=== PATIENT | male | born 1965 | race African-American/Black ===

== ENCOUNTER 2017-01-19 11:34 | Inpatient (IN) | payer MEDICAID, OTHER ==
[~2017-01-19] VITALS: Ht 193 cm; Wt 135.2 kg
[~2017-01-19 11:34] MED LIST: ASPI-1159 PO; ATOR40TA70 PO; BUME1TAB4 PO; BUME2TAB3 PO; CARV25TA47 PO; DIGO-26 PO; FOLI-43 PO; HYDR-4134 PO; HYDR25TA PO; INSU3INS6 SUBCUT; IPRA42SP2 INH; LEVO75TA7 PO; MAGN400C PO; METO5TAB69 PO; OMEP20TA2 PO; ONDA4TAB51 PO; POTA20TA12 PO; QUET200T PO; SPIR25TA4 PO; ZOLP10TA2 PO; amiodarone hcl PO
[2017-01-19] MEDS ORDERED: MORPHINE SULFATE 4 MG/ML CPJ (NOT FOR IM USE) IV ONE (12:15)
[2017-01-19] MEDS ORDERED: ASPIRIN 325MG TABLET PO ONE (12:15)
[2017-01-19] MEDS ORDERED: ONDANSETRON HCL 4MG/2ML VIAL IV ONE (12:15)
[2017-01-19 12:44] LABS: HEMATOCRIT. 39.6 % (42.0-52.0); HEMOGLOBIN. 13.6 g/dL (14.0-18.0); LYMPHOCYTES % 14.3 % (20.0-50.0); MEAN CORPUSCULAR HEMOGLOBIN 27.5 pg (28.0-32.0); MEAN CORPUSCULAR VOLUME 80.4 fL (80.0-94.0); MEAN PLATELET VOLUME 10.9 fl (7.4-10.4); MONOCYTES % 6.2 % (2.0-8.0); NEUTROPHILS % 77.5 % (40.0-76.0); PLATELET 141 x1000/uL (130-400); RED BLOOD CELL COUNT 4.93 mill/uL (4.7-6.1); RED CELL DISTRIBUTION WIDTH 14.4 % (11.6-14.6)
[2017-01-19 12:50] LABS: PROTHROMBIN TIME 10.3 sec (9.4-11.6)
[2017-01-19 12:56] LABS: CHLORIDE 97 mEq/L (98-107)
[2017-01-19 13:01] LABS: CARBON DIOXIDE 27 mEq/L (21-32)
[2017-01-19 13:04] LABS: TROPONIN I 0.05 ng/mL (0.00-0.04)
[2017-01-19 16:15] VITALS: BP 134/74
[2017-01-19 16:27] VITALS: BP 119/54
[2017-01-19] MEDS ORDERED: IPRATROPIUM/ALBUTEROL 0.5-3(2.5)MG/3ML NEB HHN PRN (17:45)
[2017-01-19] MEDS ORDERED: ONDANSETRON 4MG ODT PO PRN (17:45)
[2017-01-19] MEDS ORDERED: DEXTROSE 50% WATER 50ML SYRINGE IV PRN (18:30)
[2017-01-19] MEDS: MORPHINE SULFATE 4 MG/ML CPJ (NOT FOR IM USE) IV PRN ×2 (19:04→23:33)
[2017-01-19 20:10] VITALS: BP 107/68
[2017-01-19] MEDS: IPRATROPIUM/ALBUTEROL 0.5-3(2.5)MG/3ML NEB HHN SCH (20:42)
[2017-01-19] MEDS ORDERED: HYDRALAZINE HCL 25MG TABLET PO SCH (21:00)
[2017-01-19] MEDS: BLOOD SUGAR DIAGNOSTIC STRIP TEST SCH (21:19)
[2017-01-19] MEDS: QUETIAPINE FUMARATE 100MG TABLET PO SCH (21:19)
[2017-01-19] MEDS: INSULIN LISPRO 100 UNITS/ML SUBCUT SCH (22:37)
[2017-01-19] MEDS: ZOLPIDEM TARTRATE 5MG TABLET PO PRN (23:33)
[2017-01-19] MEDS: INSULIN DETEMIR UD 100 UNITS/ML SYR SUBCUT SCH (23:38)
[2017-01-20 00:07] VITALS: BP 116/65
[2017-01-20] MEDS: IPRATROPIUM/ALBUTEROL 0.5-3(2.5)MG/3ML NEB HHN SCH ×5 (00:45→21:15)
[2017-01-20 04:31] VITALS: BP 128/73
[2017-01-20] MEDS: LEVOTHYROXINE SODIUM 75MCG TABLET PO SCH (06:22)
[2017-01-20] MEDS: BLOOD SUGAR DIAGNOSTIC STRIP TEST SCH ×4 (06:26→21:10)
[2017-01-20] MEDS: INSULIN LISPRO 100 UNITS/ML SUBCUT SCH ×7 (06:26→21:18)
[2017-01-20 07:26] LABS: CARBON DIOXIDE 29 mEq/L (21-32); CHLORIDE 97 mEq/L (98-107); CREATINE KINASE 199 IU/L (39-308); CREATINE KINASE MB FRACTION 5.3 ng/mL (0.5-3.6); PHOSPHORUS 3.3 mg/dL (2.5-4.9); TROPONIN I 0.05 ng/mL (0.00-0.04)
[2017-01-20 07:52] LABS: BASOPHILS % 0.5 % (0.0-2.0); EOSINOPHILS % 1.8 % (0.0-5.0); HEMATOCRIT. 38.2 % (42.0-52.0); HEMOGLOBIN. 12.9 g/dL (14.0-18.0); LYMPHOCYTES % 23.2 % (20.0-50.0); MEAN CORPUSCULAR HEMOGLOBIN 27.3 pg (28.0-32.0); MEAN PLATELET VOLUME 11.8 fl (7.4-10.4); MONOCYTES % 6.5 % (2.0-8.0); PLATELET 134 x1000/uL (130-400); RED BLOOD CELL COUNT 4.72 mill/uL (4.7-6.1); RED CELL DISTRIBUTION WIDTH 14.5 % (11.6-14.6)
[2017-01-20 07:57] LABS: *AMPHETAMINES SCREEN URINE NEGATIVE (NEGATIVE); *BARBITURATES SCREEN URINE NEGATIVE (NEGATIVE); *BENZODIAZEPINES SCREEN URINE NEGATIVE (NEGATIVE); *COCAINE SCREEN URINE NEGATIVE (NEGATIVE); CANNABINOID URINE SCREEN PRESUMTIVE POSITIVE (NEGATIVE); METHADONE URINE SCREEN NEGATIVE (NEGATIVE); OPIATES URINE SCREEN PRESUMTIVE POSITIVE (NEGATIVE); PHENCYCLIDINE URINE SCREEN NEGATIVE (NEGATIVE)
[2017-01-20 08:00] VITALS: BP 148/50
[2017-01-20] MEDS ORDERED: HYDROCHLOROTHIAZIDE 25MG TABLET PO SCH (09:00)
[2017-01-20] MEDS ORDERED: ASPIRIN 81MG EC TABLET PO SCH (09:00)
[2017-01-20] MEDS: ASPIRIN 325MG EC TABLET PO SCH (09:24)
[2017-01-20] MEDS: CARVEDILOL 25MG TABLET PO SCH ×2 (09:25→16:48)
[2017-01-20] MEDS: SPIRONOLACTONE 25MG TABLET PO SCH (09:25)
[2017-01-20] MEDS: DIGOXIN 125MCG TABLET PO SCH (09:25)
[2017-01-20] MEDS: AMLODIPINE 2.5MG TABLET PO SCH (09:25)
[2017-01-20] MEDS: HYDRALAZINE HCL 25MG TABLET PO SCH ×2 (09:25→21:00)
[2017-01-20] MEDS: FUROSEMIDE 40MG/4ML VIAL IVP SCH (09:26)
[2017-01-20] MEDS: PANTOPRAZOLE SODIUM 40 MG/VIAL IV SCH (09:26)
[2017-01-20] MEDS: FOLIC ACID 1MG TABLET PO SCH (09:26)
[2017-01-20] MEDS: MORPHINE SULFATE 4 MG/ML CPJ (NOT FOR IM USE) IV PRN ×2 (10:16→19:23)
[2017-01-20 12:00] VITALS: BP 115/74
[2017-01-20 16:00] VITALS: BP 141/70
[2017-01-20 20:08] VITALS: BP 107/63
[2017-01-20] MEDS ORDERED: ATORVASTATIN CALCIUM 40MG TABLET PO SCH (21:00)
[2017-01-20] MEDS: ZOLPIDEM TARTRATE 5MG TABLET PO PRN (21:15)
[2017-01-20] MEDS: QUETIAPINE FUMARATE 100MG TABLET PO SCH (21:15)
[2017-01-20] MEDS: INSULIN DETEMIR UD 100 UNITS/ML SYR SUBCUT SCH (21:18)
[2017-01-21] VITALS: BP 112/68
[2017-01-21] MEDS: IPRATROPIUM/ALBUTEROL 0.5-3(2.5)MG/3ML NEB HHN SCH ×4 (01:52→12:00)
[2017-01-21 04:00] VITALS: BP 125/80
[2017-01-21] MEDS: LEVOTHYROXINE SODIUM 75MCG TABLET PO SCH (05:47)
[2017-01-21] MEDS: MORPHINE SULFATE 4 MG/ML CPJ (NOT FOR IM USE) IV PRN ×3 (05:48→11:53)
[2017-01-21 06:19] LABS: BASOPHILS % 0.9 % (0.0-2.0); EOSINOPHILS % 1.7 % (0.0-5.0); HEMATOCRIT. 40.4 % (42.0-52.0); HEMOGLOBIN. 13.6 g/dL (14.0-18.0); LYMPHOCYTES % 21.5 % (20.0-50.0); MEAN CORPUSCULAR HEMOGLOBIN 27.4 pg (28.0-32.0); MEAN CORPUSCULAR VOLUME 81.1 fL (80.0-94.0); MEAN PLATELET VOLUME 11.1 fl (7.4-10.4); MONOCYTES % 6.3 % (2.0-8.0); NEUTROPHILS % 69.6 % (40.0-76.0); PLATELET 144 x1000/uL (130-400); RED BLOOD CELL COUNT 4.99 mill/uL (4.7-6.1); RED CELL DISTRIBUTION WIDTH 14.4 % (11.6-14.6)
[2017-01-21] MEDS: BLOOD SUGAR DIAGNOSTIC STRIP TEST SCH ×2 (06:36→11:25)
[2017-01-21 07:13] LABS: CHLORIDE 99 mEq/L (98-107)
[2017-01-21 07:26] LABS: CARBON DIOXIDE 26 mEq/L (21-32); TROPONIN I 0.05 ng/mL (0.00-0.04)
[2017-01-21] MEDS: INSULIN LISPRO 100 UNITS/ML SUBCUT SCH ×4 (07:49→11:52)
[2017-01-21 08:00] VITALS: BP 95/48
[2017-01-21] MEDS: SPIRONOLACTONE 25MG TABLET PO SCH (08:03)
[2017-01-21] MEDS: HYDRALAZINE HCL 25MG TABLET PO SCH (08:03)
[2017-01-21] MEDS: CARVEDILOL 25MG TABLET PO SCH (08:04)
[2017-01-21] MEDS: FOLIC ACID 1MG TABLET PO SCH (08:04)
[2017-01-21] MEDS: AMLODIPINE 2.5MG TABLET PO SCH (08:04)
[2017-01-21] MEDS: ASPIRIN 325MG EC TABLET PO SCH (08:04)
[2017-01-21] MEDS: PANTOPRAZOLE SODIUM 40 MG/VIAL IV SCH (08:04)
[2017-01-21] MEDS: DIGOXIN 125MCG TABLET PO SCH (08:04)
[2017-01-21] MEDS: FUROSEMIDE 40MG/4ML VIAL IVP SCH (08:04)
[2017-01-21 12:00] VITALS: BP 120/93
[2017-01-21 12:20] VITALS: BP 120/93
[2017-03-03] MEDS ORDERED: AMIO100T4 PO (00:19)
== END 2017-01-21 13:28 | disposition home or self-care (01) | DRG 203 ==
LOC: ER 12:12 → EDBEDREQ 15:00 → ENRESERV 15:35 → 3WST 16:38
PROVIDERS: ADMIT Internal Medicine; ATTEND Internal Medicine
DX: M94.0 Chondrocostal junction syndrome [Tietze] (principal); I42.0 Dilated cardiomyopathy; I11.0 Hypertensive heart disease with heart failure; I50.22 Chronic systolic (congestive) heart failure; E11.65 Type 2 diabetes mellitus with hyperglycemia; E83.51 Hypocalcemia; I27.2 Other secondary pulmonary hypertension; E78.5 Hyperlipidemia, unspecified; E03.9 Hypothyroidism, unspecified; E78.00 Pure hypercholesterolemia, unspecified; G47.33 Obstructive sleep apnea (adult) (pediatric); F12.90 Cannabis use, unspecified, uncomplicated; I48.0 Paroxysmal atrial fibrillation; J44.9 Chronic obstructive pulmonary disease, unspecified; Z79.4 Long term (current) use of insulin; Z88.6 Allergy status to analgesic agent; Z88.1 Allergy status to other antibiotic agents; Z95.0 Presence of cardiac pacemaker; E87.1 Hypo-osmolality and hyponatremia
CPT/HCPCS: 36415; 71010; 80048; 80053; 80305; 82550; 82553; 82962; 83735; 83880; 84100; 84484; 85025; 85610; 93005; 93306; 94640; 94664; 96374; 96375; 99285; C9113; J1815; J1940; J2270; J2405; J7030; J7620

== ENCOUNTER 2017-05-04 21:04 | Emergency (ER) | payer OTHER ==
[~2017-05-04] VITALS: Ht 193 cm; Wt 129.0 kg
[~2017-05-04 21:04] MED LIST changes: +AMIO100T4 PO; -amiodarone hcl PO
[2017-05-04 21:06] VITALS: BP 114/65
[2017-05-04 23:39] LABS: BASOPHILS % 0.8 % (0.0-2.0); HEMATOCRIT. 43.8 % (42.0-52.0); HEMOGLOBIN. 14.6 g/dL (14.0-18.0); LYMPHOCYTES % 15.7 % (20.0-50.0); MEAN CORPUSCULAR HEMOGLOBIN 27.2 pg (28.0-32.0); MEAN CORPUSCULAR VOLUME 81.8 fL (80.0-94.0); MEAN PLATELET VOLUME 10.1 fl (7.4-10.4); MONOCYTES % 4.7 % (2.0-8.0); NEUTROPHILS % 77.8 % (40.0-76.0); PLATELET 212 x1000/uL (130-400); RED BLOOD CELL COUNT 5.36 mill/uL (4.7-6.1); RED CELL DISTRIBUTION WIDTH 14.8 % (11.6-14.6)
[2017-05-04 23:47] LABS: PROTHROMBIN TIME 10.3 sec (9.4-11.6)
[2017-05-05 00:02] LABS: CARBON DIOXIDE 31 mEq/L (21-32); CHLORIDE 97 mEq/L (98-107); TROPONIN I 0.05 ng/mL (0.00-0.04)
== END 2017-05-04 23:47 | disposition left against medical advice (07) ==
LOC: ER 23:38
DX: R07.9 Chest pain, unspecified (principal); R06.02 Shortness of breath; J45.909 Unspecified asthma, uncomplicated; F12.10 Cannabis abuse, uncomplicated; I11.0 Hypertensive heart disease with heart failure; I25.10 Atherosclerotic heart disease of native coronary artery without angina pectoris; I50.9 Heart failure, unspecified; F20.9 Schizophrenia, unspecified; E11.9 Type 2 diabetes mellitus without complications; Z79.4 Long term (current) use of insulin; Z79.82 Long term (current) use of aspirin; Z88.0 Allergy status to penicillin; Z88.1 Allergy status to other antibiotic agents; Z88.6 Allergy status to analgesic agent; Z95.0 Presence of cardiac pacemaker
CPT/HCPCS: 36415; 80053; 83880; 84484; 85025; 85610; 93005; 99285

== ENCOUNTER 2018-01-08 22:30 | Inpatient (IN) | payer MEDICAID, OTHER ==
[~2018-01-08] VITALS: Ht 193 cm; Wt 129.3 kg
[~2018-01-08 22:30] MED LIST changes: -SPIR25TA4 PO; +SPIR25TA6 PO
[2018-01-08] MEDS ORDERED: MORPHINE SULFATE 4 MG/ML CPJ (NOT FOR IM USE) IV STA (22:52)
[2018-01-08] MEDS ORDERED: ONDANSETRON HCL 4MG/2ML INJ IV STA (22:52)
[2018-01-08 23:50] LABS: EOSINOPHILS % 1.3 % (0.0-5.0); HEMATOCRIT. 43.3 % (42.0-52.0); HEMOGLOBIN. 15.4 g/dL (14.0-18.0); LYMPHOCYTES % 14.9 % (20.0-50.0); MEAN CORPUSCULAR HEMOGLOBIN 29.9 pg (28.0-32.0); MEAN CORPUSCULAR VOLUME 83.9 fL (80.0-94.0); MEAN PLATELET VOLUME 10.6 fl (7.4-10.4); MONOCYTES % 6.1 % (2.0-8.0); NEUTROPHILS % 76.7 % (40.0-76.0); PLATELET 198 x1000/uL (130-400); RED BLOOD CELL COUNT 5.17 mill/uL (4.7-6.1); RED CELL DISTRIBUTION WIDTH 12.9 % (11.6-14.6)
[2018-01-08 23:52] LABS: CHLORIDE 87 mEq/L (98-107)
[2018-01-08 23:58] LABS: INR 0.9; PARTIAL THROMBOPLASTIN TIME 24.3 sec (23.4-31.0); PROTHROMBIN TIME 9.4 sec (9.1-11.1)
[2018-01-08 23:59] LABS: ETHANOL BLOOD < 10 mg/dL
[2018-01-09] MEDS ORDERED: POTASSIUM CHLORIDE 20MEQ TABLET SR PO ONE (00:15)
[2018-01-09 00:45] LABS: PHOSPHORUS 2.7 mg/dL (2.5-4.9)
[2018-01-09] MEDS ORDERED: MORPHINE SULFATE 4 MG/ML CPJ (NOT FOR IM USE) IV ONE (01:45)
[2018-01-09] MEDS ORDERED: ONDANSETRON HCL 4MG/2ML INJ IV ONE (01:45)
[2018-01-09 03:33] LABS: CLARITY URINE CLEAR (CLEAR); COLOR URINE YELLOW (YELLOW); KETONES URINE NEGATIVE (NEGATIVE); LEUKOCYTE ESTERASE URINE NEGATIVE (NEGATIVE); NITRITE URINE NEGATIVE (NEGATIVE); OCCULT BLOOD URINE NEGATIVE (NEGATIVE); PROTEIN URINE NEGATIVE (NEGATIVE)
[2018-01-09 04:01] LABS: *AMPHETAMINES SCREEN URINE NEGATIVE (NEGATIVE); *BENZODIAZEPINES SCREEN URINE NEGATIVE (NEGATIVE); *COCAINE SCREEN URINE NEGATIVE (NEGATIVE); METHADONE URINE SCREEN NEGATIVE (NEGATIVE)
[2018-01-09 04:02] LABS: OPIATES URINE SCREEN PRESUMTIVE POSITIVE (NEGATIVE); PHENCYCLIDINE URINE SCREEN NEGATIVE (NEGATIVE)
[2018-01-09 04:03] LABS: *BARBITURATES SCREEN URINE NEGATIVE (NEGATIVE); CANNABINOID URINE SCREEN PRESUMTIVE POSITIVE (NEGATIVE)
[2018-01-09 04:35] VITALS: BP 124/75
[2018-01-09 05:00] VITALS: BP 124/75
[2018-01-09 08:00] VITALS: BP 111/60
[2018-01-09] MEDS ORDERED: DEXTROSE 50% WATER 50ML SYRINGE IV PRN (08:15)
[2018-01-09] MEDS: LEVOTHYROXINE SODIUM 75MCG TABLET PO SCH (08:37)
[2018-01-09] MEDS: OMEPRAZOLE 20MG CAPSULE EXTENDED RELEASE PO SCH (08:37)
[2018-01-09] MEDS: CARVEDILOL 25MG TABLET PO SCH ×2 (08:38→21:36)
[2018-01-09] MEDS: AMIODARONE HCL 200 MG TABLET PO SCH (08:38)
[2018-01-09] MEDS: SPIRONOLACTONE 25MG TABLET PO SCH (08:38)
[2018-01-09] MEDS: FOLIC ACID 1MG TABLET PO SCH (08:38)
[2018-01-09] MEDS: INSULIN LISPRO 100 UNITS/ML SUBCUT SCH ×4 (08:39→21:51)
[2018-01-09] MEDS: POTASSIUM CHLORIDE 20MEQ TABLET SR PO SCH (08:44)
[2018-01-09] MEDS ORDERED: ASPIRIN 81MG TABLET PO SCH (09:00)
[2018-01-09] MEDS: ENOXAPARIN 30MG/0.3ML SYR SUBCUT SCH ×3 (09:00→21:00)
[2018-01-09] MEDS ORDERED: ENOXAPARIN 40MG/0.4ML SYR SUBCUT SCH (09:00)
[2018-01-09] MEDS: MORPHINE SULFATE 4 MG/ML CPJ (NOT FOR IM USE) IV PRN ×2 (09:15→17:28)
[2018-01-09] MEDS: ASPIRIN 81MG TABLET PO SCH (09:32)
[2018-01-09 12:00] VITALS: BP 97/55
[2018-01-09] MEDS: BLOOD SUGAR DIAGNOSTIC STRIP TEST SCH ×3 (12:59→21:47)
[2018-01-09 13:31] LABS: CREATINE KINASE MB FRACTION 8.7 ng/mL (0.5-3.6)
[2018-01-09 16:00] VITALS: BP 115/60
[2018-01-09] MEDS: DIGOXIN 125MCG TABLET PO SCH (17:47)
[2018-01-09] MEDS ORDERED: POTASSIUM CHLORIDE 20MEQ TABLET SR PO NR (19:00)
[2018-01-09 20:00] VITALS: BP 111/69
[2018-01-09] MEDS ORDERED: ZOLPIDEM TARTRATE 5MG TABLET PO PRN (21:00)
[2018-01-09] MEDS ORDERED: BUMETANIDE 1MG TABLET PO SCH (21:15)
[2018-01-09] MEDS: ATORVASTATIN CALCIUM 40MG TABLET PO SCH (21:34)
[2018-01-09] MEDS: QUETIAPINE FUMARATE 100MG TABLET PO SCH (21:35)
[2018-01-09] MEDS: GUAIFENESIN/CODEINE 200-20MG/10ML UDC PO PRN (21:36)
[2018-01-09] MEDS: INSULIN GLARGINE UD 100 UNITS/ML SYR SUBCUT SCH (21:51)
[2018-01-09] MEDS: IPRATROPIUM/ALBUTEROL 0.5-3(2.5)MG/3ML NEB HHN SCH (23:43)
[2018-01-10] VITALS: BP 128/66
[2018-01-10] MEDS: IPRATROPIUM/ALBUTEROL 0.5-3(2.5)MG/3ML NEB HHN SCH ×4 (04:00→21:42)
[2018-01-10] MEDS: BLOOD SUGAR DIAGNOSTIC STRIP TEST SCH ×4 (06:04→21:55)
[2018-01-10 07:59] LABS: BASOPHILS % 0.7 % (0.0-2.0); HEMATOCRIT. 43.7 % (42.0-52.0); HEMOGLOBIN. 15.5 g/dL (14.0-18.0); LYMPHOCYTES % 20.1 % (20.0-50.0); MEAN CORPUSCULAR HEMOGLOBIN 30.3 pg (28.0-32.0); MEAN CORPUSCULAR VOLUME 85.6 fL (80.0-94.0); MEAN PLATELET VOLUME 11.4 fl (7.4-10.4); MONOCYTES % 6.6 % (2.0-8.0); NEUTROPHILS % 70.6 % (40.0-76.0); PLATELET 185 x1000/uL (130-400); RED CELL DISTRIBUTION WIDTH 13.1 % (11.6-14.6)
[2018-01-10 08:00] VITALS: BP 102/66
[2018-01-10] MEDS: CARVEDILOL 25MG TABLET PO SCH ×3 (09:00→22:09)
[2018-01-10] MEDS ORDERED: BUMETANIDE 2 MG PO SCH (09:00)
[2018-01-10] MEDS: OMEPRAZOLE 20MG CAPSULE EXTENDED RELEASE PO SCH (09:02)
[2018-01-10] MEDS: ASPIRIN 81MG TABLET PO SCH (09:02)
[2018-01-10] MEDS: LEVOTHYROXINE SODIUM 75MCG TABLET PO SCH (09:02)
[2018-01-10] MEDS: POTASSIUM CHLORIDE 20MEQ TABLET SR PO SCH ×2 (09:02→17:30)
[2018-01-10] MEDS: FOLIC ACID 1MG TABLET PO SCH (09:02)
[2018-01-10] MEDS: AMIODARONE HCL 200 MG TABLET PO SCH (09:03)
[2018-01-10] MEDS: SPIRONOLACTONE 25MG TABLET PO SCH (09:03)
[2018-01-10] MEDS: ENOXAPARIN 30MG/0.3ML SYR SUBCUT SCH ×2 (09:04→21:54)
[2018-01-10 09:23] LABS: CREATINE KINASE MB FRACTION 7.4 ng/mL (0.5-3.6)
[2018-01-10] MEDS: MORPHINE SULFATE 4 MG/ML CPJ (NOT FOR IM USE) IV PRN ×3 (09:27→22:18)
[2018-01-10 09:35] LABS: DIGOXIN 0.6 ng/mL (0.9-2.0)
[2018-01-10] MEDS: INSULIN LISPRO 100 UNITS/ML SUBCUT SCH ×4 (09:35→22:23)
[2018-01-10 12:00] VITALS: BP 129/84
[2018-01-10] MEDS ORDERED: BUMETANIDE 1MG TABLET PO NR (12:45)
[2018-01-10 16:00] VITALS: BP 124/77
[2018-01-10 16:01] LABS: CHLORIDE 94 mEq/L (98-107)
[2018-01-10] MEDS ORDERED: POTASSIUM CHLORIDE 20MEQ TABLET SR PO SCH (17:00)
[2018-01-10] MEDS: DIGOXIN 125MCG TABLET PO SCH (17:29)
[2018-01-10] MEDS: BUMETANIDE 1MG TABLET PO SCH (17:30)
[2018-01-10] MEDS ORDERED: BUMETANIDE 1MG TABLET PO SCH ×2 (18:00)
[2018-01-10 20:00] VITALS: BP 117/67
[2018-01-10] MEDS: QUETIAPINE FUMARATE 100MG TABLET PO SCH (21:52)
[2018-01-10] MEDS: ATORVASTATIN CALCIUM 40MG TABLET PO SCH (22:09)
[2018-01-10] MEDS: INSULIN GLARGINE UD 100 UNITS/ML SYR SUBCUT SCH (22:11)
[2018-01-11] VITALS (8 sets, daily range): BP systolic 93–131; BP diastolic 55–86
[2018-01-11] MEDS: IPRATROPIUM/ALBUTEROL 0.5-3(2.5)MG/3ML NEB HHN SCH ×6 (00:27→21:00)
[2018-01-11] MEDS: MORPHINE SULFATE 4 MG/ML CPJ (NOT FOR IM USE) IV PRN ×5 (02:56→22:18)
[2018-01-11] MEDS: BUMETANIDE 1MG TABLET PO SCH ×2 (06:29→17:44)
[2018-01-11] MEDS: LEVOTHYROXINE SODIUM 75MCG TABLET PO SCH (06:30)
[2018-01-11] MEDS: BLOOD SUGAR DIAGNOSTIC STRIP TEST SCH ×4 (06:35→21:00)
[2018-01-11 06:56] LABS: BASOPHILS % 0.9 % (0.0-2.0); EOSINOPHILS % 2.4 % (0.0-5.0); HEMATOCRIT. 42.6 % (42.0-52.0); HEMOGLOBIN. 15.1 g/dL (14.0-18.0); LYMPHOCYTES % 20.8 % (20.0-50.0); MEAN CORPUSCULAR HEMOGLOBIN 30.1 pg (28.0-32.0); MEAN CORPUSCULAR VOLUME 85.2 fL (80.0-94.0); MEAN PLATELET VOLUME 10.7 fl (7.4-10.4); MONOCYTES % 6.6 % (2.0-8.0); NEUTROPHILS % 69.3 % (40.0-76.0); PLATELET 175 x1000/uL (130-400); RED CELL DISTRIBUTION WIDTH 13.1 % (11.6-14.6)
[2018-01-11 07:34] LABS: CHLORIDE 93 mEq/L (98-107)
[2018-01-11] MEDS: ENOXAPARIN 30MG/0.3ML SYR SUBCUT SCH ×2 (09:00→21:00)
[2018-01-11] MEDS: FAMOTIDINE 20MG TABLET PO SCH ×3 (09:00→17:00)
[2018-01-11] MEDS: SPIRONOLACTONE 25MG TABLET PO SCH ×2 (09:12→22:05)
[2018-01-11] MEDS: POTASSIUM CHLORIDE 20MEQ TABLET SR PO SCH ×3 (09:12→17:44)
[2018-01-11] MEDS: AMIODARONE HCL 200 MG TABLET PO SCH (09:12)
[2018-01-11] MEDS: CARVEDILOL 25MG TABLET PO SCH ×2 (09:13→22:05)
[2018-01-11] MEDS: ASPIRIN 81MG TABLET PO SCH (09:13)
[2018-01-11] MEDS: FOLIC ACID 1MG TABLET PO SCH (09:13)
[2018-01-11] MEDS: INSULIN LISPRO 100 UNITS/ML SUBCUT SCH ×3 (09:16→22:08)
[2018-01-11] MEDS: GUAIFENESIN/CODEINE 200-20MG/10ML UDC PO PRN (15:51)
[2018-01-11] MEDS: DIGOXIN 125MCG TABLET PO SCH (17:44)
[2018-01-11] MEDS ORDERED: INSULIN GLARGINE UD 100 UNITS/ML SYR SUBCUT SCH (22:00)
[2018-01-11] MEDS: QUETIAPINE FUMARATE 100MG TABLET PO SCH (22:05)
[2018-01-11] MEDS: INSULIN GLARGINE UD 100 UNITS/ML SYR SUBCUT SCH (22:09)
[2018-01-11] MEDS: ATORVASTATIN CALCIUM 40MG TABLET PO SCH (22:09)
[2018-01-12] VITALS: BP 107/58
[2018-01-12 04:00] VITALS: BP 129/66
[2018-01-12] MEDS: MORPHINE SULFATE 4 MG/ML CPJ (NOT FOR IM USE) IV PRN ×3 (04:48→13:06)
[2018-01-12] MEDS: IPRATROPIUM/ALBUTEROL 0.5-3(2.5)MG/3ML NEB HHN SCH ×3 (05:05→12:29)
[2018-01-12] MEDS: BUMETANIDE 1MG TABLET PO SCH ×2 (06:20→17:50)
[2018-01-12 06:46] LABS: CHLORIDE 95 mEq/L (98-107)
[2018-01-12 06:47] LABS: BASOPHILS % 0.9 % (0.0-2.0); EOSINOPHILS % 2.4 % (0.0-5.0); HEMATOCRIT. 40.5 % (42.0-52.0); HEMOGLOBIN. 14.1 g/dL (14.0-18.0); LYMPHOCYTES % 18.3 % (20.0-50.0); MEAN CORPUSCULAR HEMOGLOBIN 29.9 pg (28.0-32.0); MEAN CORPUSCULAR VOLUME 86.3 fL (80.0-94.0); MEAN PLATELET VOLUME 11.1 fl (7.4-10.4); MONOCYTES % 6.6 % (2.0-8.0); NEUTROPHILS % 71.8 % (40.0-76.0); PLATELET 171 x1000/uL (130-400); RED CELL DISTRIBUTION WIDTH 12.9 % (11.6-14.6)
[2018-01-12] MEDS: BLOOD SUGAR DIAGNOSTIC STRIP TEST SCH ×3 (06:49→17:08)
[2018-01-12] MEDS: INSULIN LISPRO 100 UNITS/ML SUBCUT SCH ×3 (07:00→18:00)
[2018-01-12 08:00] VITALS: BP 104/56
[2018-01-12] MEDS: ENOXAPARIN 30MG/0.3ML SYR SUBCUT SCH ×2 (09:00→09:08)
[2018-01-12] MEDS: POTASSIUM CHLORIDE 20MEQ TABLET SR PO SCH ×3 (09:07→16:48)
[2018-01-12] MEDS: LEVOTHYROXINE SODIUM 75MCG TABLET PO SCH (09:07)
[2018-01-12] MEDS: CARVEDILOL 25MG TABLET PO SCH (09:07)
[2018-01-12] MEDS: ASPIRIN 81MG TABLET PO SCH (09:08)
[2018-01-12] MEDS: FOLIC ACID 1MG TABLET PO SCH (09:08)
[2018-01-12] MEDS: SPIRONOLACTONE 25MG TABLET PO SCH (09:08)
[2018-01-12] MEDS: FAMOTIDINE 20MG TABLET PO SCH ×2 (09:08→17:50)
[2018-01-12] MEDS: AMIODARONE HCL 200 MG TABLET PO SCH (09:08)
[2018-01-12] MEDS: INSULIN GLARGINE UD 100 UNITS/ML SYR SUBCUT SCH (10:19)
[2018-01-12] MEDS ORDERED: ONDANSETRON HCL 4MG/2ML INJ IV PRN (11:00)
[2018-01-12] MEDS ORDERED: DOCUSATE SODIUM 250MG CAPSULE PO SCH (11:00)
[2018-01-12] MEDS ORDERED: LACTULOSE 20G/30ML UDC PO NR (11:00)
[2018-01-12 12:00] VITALS: BP 116/73
[2018-01-12] MEDS ORDERED: POTASSIUM CHLORIDE 20MEQ TABLET SR PO NR (13:30)
[2018-01-12] MEDS ORDERED: MAGNESIUM CITRATE 300ML SOLUTION PO NR (14:30)
[2018-01-12 16:00] VITALS: BP 110/67
[2018-01-12] MEDS ORDERED: KDUR10 PO (16:33)
[2018-01-12] MEDS: DIGOXIN 125MCG TABLET PO SCH (17:50)
== END 2018-01-12 18:50 | disposition home or self-care (01) | DRG 194 ==
LOC: ER 22:40 → 7WST 01-09 01:39 → EDBEDREQTM 01-09 01:55 → EDBEDREQ 01-09 01:55 → EDBEDREQDT 01-09 01:55 → ENRESERV 01-09 03:33
PROVIDERS: ADMIT Internal Medicine; ATTEND Internal Medicine
DX: I11.0 Hypertensive heart disease with heart failure (principal); I47.2 Ventricular tachycardia; I27.20 Pulmonary hypertension, unspecified; E11.65 Type 2 diabetes mellitus with hyperglycemia; I42.9 Cardiomyopathy, unspecified; J44.1 Chronic obstructive pulmonary disease with (acute) exacerbation; I50.23 Acute on chronic systolic (congestive) heart failure; E87.6 Hypokalemia; R07.89 Other chest pain; E78.00 Pure hypercholesterolemia, unspecified; R74.8 Abnormal levels of other serum enzymes; E78.5 Hyperlipidemia, unspecified; Z95.810 Presence of automatic (implantable) cardiac defibrillator; Z86.73 Personal history of transient ischemic attack (TIA), and cerebral infarction without residual deficits; Z86.74 Personal history of sudden cardiac arrest; Z87.891 Personal history of nicotine dependence; Z91.19 Patient's noncompliance with other medical treatment and regimen; Z88.1 Allergy status to other antibiotic agents; Z88.6 Allergy status to analgesic agent; Z79.4 Long term (current) use of insulin; Z79.899 Other long term (current) drug therapy; Z79.82 Long term (current) use of aspirin
CPT/HCPCS: 36415; 71045; 80053; 80061; 80162; 80305; 81003; 82550; 82553; 82962; 83036; 83735; 83880; 84100; 84132; 84443; 84484; 85025; 85379; 85610; 85730; 93005; 93306; 93970; 96374; 96375; 96376; 99285; G0482; J1650; J1815; J2270; J2405; J7620

== ENCOUNTER 2018-09-24 05:07 | Inpatient (IN) | payer MEDICAID, OTHER ==
[~2018-09-24] VITALS: Ht 193 cm; Wt 137.0 kg
[~2018-09-24 05:07] MED LIST changes: -ASPI-1159 PO; +ASPI-1393 PO; -BUME1TAB4 PO; +BUME1TAB8 PO; -BUME2TAB3 PO; +BUME2TAB7 PO; -HYDR25TA PO; +KDUR10 PO; -POTA20TA12 PO
[2018-09-24] MEDS ORDERED: MORPHINE SULFATE 4 MG/ML CPJ (NOT FOR IM USE) IV ONE (05:45)
[2018-09-24] MEDS ORDERED: ONDANSETRON HCL 4MG/2ML INJ IV ONE (06:00)
[2018-09-24 06:08] LABS: CHLORIDE 97 mEq/L (98-107)
[2018-09-24 06:11] LABS: BASOPHILS % 0.9 % (0.0-2.0); EOSINOPHILS % 2.3 % (0.0-5.0); HEMATOCRIT. 48.5 % (42.0-52.0); HEMOGLOBIN. 16.9 g/dL (14.0-18.0); LYMPHOCYTES % 21.8 % (20.0-50.0); MEAN CORPUSCULAR VOLUME 83.2 fL (80.0-94.0); MEAN PLATELET VOLUME 10.4 fl (7.4-10.4); MONOCYTES % 6.6 % (2.0-8.0); NEUTROPHILS % 68.4 % (40.0-76.0); PLATELET 222 x1000/uL (130-400); RED BLOOD CELL COUNT 5.83 mill/uL (4.7-6.1); RED CELL DISTRIBUTION WIDTH 13.2 % (11.6-14.6)
[2018-09-24] MEDS ORDERED: GUAIFENESIN 200MG/10ML SUGAR FREE UDC PO PRN (12:45)
[2018-09-24] MEDS ORDERED: DOCUSATE SODIUM 100MG CAPSULE PO PRN (12:45)
[2018-09-24] MEDS ORDERED: ONDANSETRON HCL 4MG/2ML INJ IV PRN (12:45)
[2018-09-24] MEDS ORDERED: LORAZEPAM 0.5MG TABLET PO PRN (12:45)
[2018-09-24] MEDS ORDERED: NA PHOS,M-B/NA PHOS,DI-BA ENEMA 118ML PR PRN (12:45)
[2018-09-24] MEDS ORDERED: ACETAMINOPHEN 325MG TABLET PO PRN (12:45)
[2018-09-24] MEDS ORDERED: CLONIDINE 0.1MG TABLET PO PRN (12:45)
[2018-09-24] MEDS ORDERED: ACETAMINOPHEN 650MG SUPP PR PRN (12:45)
[2018-09-24] MEDS ORDERED: MAGNESIUM/ALUMINUM HYDROXIDE/SIMETHICONE 30ML UDC PO PRN (12:45)
[2018-09-24] MEDS ORDERED: DIPHENHYDRAMINE 50MG/ML VIAL IV PRN (12:45)
[2018-09-24] MEDS ORDERED: IPRATROPIUM/ALBUTEROL 0.5-3(2.5)MG/3ML NEB INH PRN (12:45)
[2018-09-24 14:24] LABS: CREATINE KINASE MB FRACTION 14.8 ng/mL (0.5-3.6)
[2018-09-24] MEDS: HYDROCODONE/ACETAMINOPHEN 5/325MG TABLET PO PRN (16:00)
[2018-09-24 17:28] VITALS: BP 156/75
[2018-09-24] MEDS: LOSARTAN POTASSIUM 50 MG TABLET PO SCH (18:47)
[2018-09-24] MEDS: SPIRONOLACTONE 25MG TABLET PO SCH (18:48)
[2018-09-24] MEDS: AMIODARONE HCL 200 MG TABLET PO SCH (18:48)
[2018-09-24 20:00] VITALS: BP 138/78
[2018-09-24] MEDS: ENOXAPARIN 30MG/0.3ML SYR SUBCUT SCH (21:00)
[2018-09-24] MEDS ORDERED: CARVEDILOL 3.125 MG TABLET PO SCH (21:00)
[2018-09-24] MEDS ORDERED: MEDICATION NOT ON FORMULARY EA (Zolpidem Tartrate (Ambien) 10 MG) PO PRN (23:15)
[2018-09-24] MEDS ORDERED: DEXTROSE 50% WATER 50ML SYRINGE IV PRN (23:30)
[2018-09-25] VITALS (10 sets, daily range): BP systolic 92–131; BP diastolic 44–89
[2018-09-25] MEDS ORDERED: ZOLPIDEM TARTRATE 5MG TABLET PO PRN (00:45)
[2018-09-25] MEDS: HYDROCODONE/ACETAMINOPHEN 5/325MG TABLET PO PRN ×2 (00:46→09:49)
[2018-09-25] MEDS: QUETIAPINE FUMARATE 100MG TABLET PO SCH ×2 (00:46→20:30)
[2018-09-25] MEDS: IPRATROPIUM/ALBUTEROL 0.5-3(2.5)MG/3ML NEB INH SCH ×3 (01:36→12:00)
[2018-09-25 04:05] LABS: CLARITY URINE CLEAR (CLEAR); COLOR URINE YELLOW (YELLOW); KETONES URINE NEGATIVE (NEGATIVE); LEUKOCYTE ESTERASE URINE NEGATIVE (NEGATIVE); NITRITE URINE NEGATIVE (NEGATIVE); OCCULT BLOOD URINE NEGATIVE (NEGATIVE); PROTEIN URINE NEGATIVE (NEGATIVE); SPECIFIC GRAVITY URINE 1.019 (1.005-1.030)
[2018-09-25 04:12] LABS: *AMPHETAMINES SCREEN URINE NEGATIVE (NEGATIVE); *BARBITURATES SCREEN URINE NEGATIVE (NEGATIVE)
[2018-09-25 04:13] LABS: *BENZODIAZEPINES SCREEN URINE NEGATIVE (NEGATIVE); *COCAINE SCREEN URINE NEGATIVE (NEGATIVE); CANNABINOID URINE SCREEN PRESUMTIVE POSITIVE (NEGATIVE); METHADONE URINE SCREEN NEGATIVE (NEGATIVE); OPIATES URINE SCREEN PRESUMTIVE POSITIVE (NEGATIVE); PHENCYCLIDINE URINE SCREEN NEGATIVE (NEGATIVE)
[2018-09-25 06:18] LABS: BASOPHILS % 0.9 % (0.0-2.0); EOSINOPHILS % 2.3 % (0.0-5.0); HEMOGLOBIN. 15.2 g/dL (14.0-18.0); LYMPHOCYTES % 21.6 % (20.0-50.0); MEAN CORPUSCULAR HEMOGLOBIN 29.3 pg (28.0-32.0); MEAN CORPUSCULAR VOLUME 83.2 fL (80.0-94.0); MEAN PLATELET VOLUME 10.3 fl (7.4-10.4); MONOCYTES % 7.5 % (2.0-8.0); NEUTROPHILS % 67.7 % (40.0-76.0); PLATELET 180 x1000/uL (130-400); RED BLOOD CELL COUNT 5.17 mill/uL (4.7-6.1)
[2018-09-25] MEDS: LEVOTHYROXINE SODIUM 75MCG TABLET PO SCH (06:46)
[2018-09-25] MEDS: BLOOD SUGAR DIAGNOSTIC STRIP TEST SCH ×4 (06:47→21:00)
[2018-09-25 07:00] LABS: CHLORIDE 98 mEq/L (98-107)
[2018-09-25 07:24] LABS: LDL CHOLESTEROL 92 mg/dL (5-100)
[2018-09-25 07:25] LABS: HDL CHOLESTEROL 36 mg/dL (40-59); T4 FREE 1.63 ng/dL (0.76-1.46)
[2018-09-25 07:39] LABS: DIGOXIN 0.4 ng/mL (0.9-2.0)
[2018-09-25] MEDS ORDERED: INSULIN LISPRO 100 UNITS/ML SUBCUT SCH (07:50)
[2018-09-25] MEDS: ENOXAPARIN 30MG/0.3ML SYR SUBCUT SCH ×2 (09:00→20:31)
[2018-09-25] MEDS: CARVEDILOL 25MG TABLET PO SCH ×2 (09:00→20:31)
[2018-09-25] MEDS: METOLAZONE 5MG TABLET PO SCH (09:00)
[2018-09-25] MEDS: SPIRONOLACTONE 25MG TABLET PO SCH (09:00)
[2018-09-25] MEDS ORDERED: MEDICATION NOT ON FORMULARY EA (Amiodarone HCl 200 MG) PO SCH (09:00)
[2018-09-25] MEDS: AMIODARONE HCL 200 MG TABLET PO SCH (09:08)
[2018-09-25] MEDS: ASPIRIN 81MG EC TABLET PO SCH (09:08)
[2018-09-25] MEDS: FUROSEMIDE 40MG/4ML VIAL IV SCH (09:08)
[2018-09-25] MEDS: LOSARTAN POTASSIUM 50 MG TABLET PO SCH (09:08)
[2018-09-25] MEDS: FOLIC ACID 1MG TABLET PO SCH (09:09)
[2018-09-25] MEDS: MAGNESIUM OXIDE 400MG TABLET PO SCH (09:09)
[2018-09-25] MEDS ORDERED: INSULIN GLARGINE UD 100 UNITS/ML SYR SUBCUT SCH (12:00)
[2018-09-25] MEDS: INSULIN LISPRO 100 UNITS/ML SUBCUT SCH ×3 (12:18→21:58)
[2018-09-25] MEDS ORDERED: KCL 20MEQ/100ML PREMIX 100 ML IV SCH (13:00)
[2018-09-25] MEDS ORDERED: ASPIRIN/SOD BICARB/CITRIC ACID 324MG TAB EFF ONE (14:14)
[2018-09-25] MEDS ORDERED: LIDOCAINE HCL 1% 20ML VIAL (Pyxis) INJ ONE (14:14)
[2018-09-25] MEDS ORDERED: IODIXANOL 320MG/ML 100 ML BOTTLE IV ONE (14:14)
[2018-09-25] MEDS ORDERED: IOHEXOL-300 100 ML BOTTLE ONE (14:14)
[2018-09-25] MEDS ORDERED: MIDAZOLAM HCL 2 MG/2 ML VIAL ONE (14:35)
[2018-09-25] MEDS ORDERED: FENTANYL CITRATE/PF 50MCG/ML 2ML VIAL ONE (14:35)
[2018-09-25] MEDS ORDERED: ACETAMINOPHEN 325MG TABLET PO PRN (15:00)
[2018-09-25] MEDS ORDERED: ONDANSETRON HCL 4MG/2ML INJ IV PRN (15:00)
[2018-09-25] MEDS ORDERED: ATROPINE SULFATE 1MG/10ML SYR IV PRN (15:00)
[2018-09-25] MEDS ORDERED: NITROGLYCERIN 50MCG/ML 10ML VIAL (CATH LAB) IV ONE (15:15)
[2018-09-25] MEDS ORDERED: NICARDIPINE 100MCG/ML 10ML VIAL (CATH LAB) IV ONE (15:15)
[2018-09-25] MEDS ORDERED: HEPARIN SODIUM 1,000 UNIT/1ML VIAL IV ONE (15:15)
[2018-09-25] MEDS ORDERED: SODIUM CHLORIDE 0.45% 600 ML IV ONE (17:00)
[2018-09-25] MEDS ORDERED: DIGOXIN 125MCG TABLET PO SCH (18:00)
[2018-09-25] MEDS ORDERED: POTASSIUM CHLORIDE 20MEQ TABLET SR PO NR (19:15)
[2018-09-25] MEDS ORDERED: ATORVASTATIN CALCIUM 40MG TABLET PO SCH (21:00)
[2018-09-25] MEDS ORDERED: MEDICATION NOT ON FORMULARY EA (Quetiapine Fumarate (Seroquel) 200 MG) PO SCH (21:00)
[2018-09-25] MEDS: INSULIN GLARGINE UD 100 UNITS/ML SYR SUBCUT SCH (21:59)
[2018-09-26] VITALS (9 sets, daily range): BP systolic 90–129; BP diastolic 39–69
[2018-09-26] MEDS: IPRATROPIUM/ALBUTEROL 0.5-3(2.5)MG/3ML NEB INH SCH ×3 (02:08→13:47)
[2018-09-26] MEDS: LEVOTHYROXINE SODIUM 75MCG TABLET PO SCH (06:06)
[2018-09-26 07:01] LABS: BASOPHILS % 0.8 % (0.0-2.0); EOSINOPHILS % 2.1 % (0.0-5.0); HEMATOCRIT. 41.1 % (42.0-52.0); HEMOGLOBIN. 14.2 g/dL (14.0-18.0); LYMPHOCYTES % 20.5 % (20.0-50.0); MEAN CORPUSCULAR HEMOGLOBIN 28.9 pg (28.0-32.0); MEAN PLATELET VOLUME 10.4 fl (7.4-10.4); NEUTROPHILS % 69.6 % (40.0-76.0); PLATELET 169 x1000/uL (130-400); RED BLOOD CELL COUNT 4.89 mill/uL (4.7-6.1); RED CELL DISTRIBUTION WIDTH 12.8 % (11.6-14.6)
[2018-09-26 07:33] LABS: CHLORIDE 100 mEq/L (98-107)
[2018-09-26] MEDS: INSULIN LISPRO 100 UNITS/ML SUBCUT SCH ×2 (07:43→11:58)
[2018-09-26] MEDS: ENOXAPARIN 30MG/0.3ML SYR SUBCUT SCH ×2 (09:00→09:17)
[2018-09-26] MEDS: FUROSEMIDE 40MG/4ML VIAL IV SCH (09:17)
[2018-09-26] MEDS: LOSARTAN POTASSIUM 50 MG TABLET PO SCH (09:18)
[2018-09-26] MEDS: METOLAZONE 5MG TABLET PO SCH (09:18)
[2018-09-26] MEDS: ASPIRIN 81MG EC TABLET PO SCH (09:18)
[2018-09-26] MEDS: MAGNESIUM OXIDE 400MG TABLET PO SCH (09:19)
[2018-09-26] MEDS: CARVEDILOL 25MG TABLET PO SCH (09:19)
[2018-09-26] MEDS: AMIODARONE HCL 200 MG TABLET PO SCH (09:19)
[2018-09-26] MEDS: FOLIC ACID 1MG TABLET PO SCH (09:19)
[2018-09-26] MEDS: SPIRONOLACTONE 25MG TABLET PO SCH (09:30)
[2018-09-26] MEDS: INSULIN GLARGINE UD 100 UNITS/ML SYR SUBCUT SCH (11:59)
[2018-09-26] MEDS ORDERED: INSULIN GLARGINE UD 100 UNITS/ML SYR SUBCUT SCH (22:00)
== END 2018-09-26 15:51 | disposition home or self-care (01) | DRG 192 ==
LOC: ER 06:17 → EDBEDREQ 06:18 → EDBEDREQTM 06:18 → 6WST 06:18 → ENRESERV 15:20 → 3WST 09-25 16:47
PROVIDERS: ADMIT Internal Medicine; ATTEND Internal Medicine
PROC: 4A023N7 Measurement of Cardiac Sampling and Pressure, Left Heart, Percutaneous Approach (ICD-10-PCS; principal; 2018-09-25)
PROC: B2111ZZ Fluoroscopy of Multiple Coronary Arteries using Low Osmolar Contrast (ICD-10-PCS; 2018-09-25)
PROC: B2151ZZ Fluoroscopy of Left Heart using Low Osmolar Contrast (ICD-10-PCS; 2018-09-25)
DX: M94.0 Chondrocostal junction syndrome [Tietze] (principal); I27.20 Pulmonary hypertension, unspecified; E11.65 Type 2 diabetes mellitus with hyperglycemia; I42.0 Dilated cardiomyopathy; E87.1 Hypo-osmolality and hyponatremia; I50.9 Heart failure, unspecified; I11.0 Hypertensive heart disease with heart failure; E78.5 Hyperlipidemia, unspecified; E66.9 Obesity, unspecified; K21.9 Gastro-esophageal reflux disease without esophagitis; E03.9 Hypothyroidism, unspecified; E78.00 Pure hypercholesterolemia, unspecified; F12.90 Cannabis use, unspecified, uncomplicated; I49.3 Ventricular premature depolarization; J44.9 Chronic obstructive pulmonary disease, unspecified; Z86.73 Personal history of transient ischemic attack (TIA), and cerebral infarction without residual deficits; Z87.891 Personal history of nicotine dependence; Z95.810 Presence of automatic (implantable) cardiac defibrillator; Z88.6 Allergy status to analgesic agent; Z88.1 Allergy status to other antibiotic agents; Z88.8 Allergy status to other drugs, medicaments and biological substances; Z91.013 Allergy to seafood; Z79.4 Long term (current) use of insulin; Z79.899 Other long term (current) drug therapy; Z68.36 Body mass index [BMI] 36.0-36.9, adult
CPT/HCPCS: 36415; 71045; 80048; 80061; 80162; 80305; 82550; 82553; 82962; 83036; 83735; 83880; 84439; 84443; 84484; 85379; 93005; 93306; 93458; 94640; 96374; 96375; 99285; C1769; C1887; C1893; J1644; J1650; J1815; J1940; J2250; J2270; J2405; J3010; J3480; J3490; J7620; Q9967

== ENCOUNTER 2019-07-22 01:12 | Emergency (ER) | payer OTHER ==
[~2019-07-22] VITALS: Ht 193 cm; Wt 132.0 kg
[~2019-07-22 01:12] MED LIST changes: -ASPI-1393 PO; +ASPI-1497 PO; +CRES10 PO; +GLIP10TA10 MT; -HYDR-4134 PO; -METO5TAB69 PO; +METO5TAB7 PO; -OMEP20TA2 PO; -SPIR25TA6 PO
[2019-07-22 02:12] LABS: BASOPHILS % 0.9 % (0.0-2.0); EOSINOPHILS % 0.8 % (0.0-5.0); HEMATOCRIT. 49.2 % (42.0-52.0); HEMOGLOBIN. 17.3 g/dL (14.0-18.0); LYMPHOCYTES % 20.2 % (20.0-50.0); MEAN CORPUSCULAR HEMOGLOBIN 29.6 pg (28.0-32.0); MEAN CORPUSCULAR VOLUME 84.5 fL (80.0-94.0); MEAN PLATELET VOLUME 10.8 fl (7.4-10.4); MONOCYTES % 6.8 % (2.0-8.0); NEUTROPHILS % 71.3 % (40.0-76.0); PLATELET 247 x1000/uL (130-400); RED BLOOD CELL COUNT 5.82 mill/uL (4.7-6.1); RED CELL DISTRIBUTION WIDTH 13.2 % (11.6-14.6)
[2019-07-22] MEDS ORDERED: ASPIRIN 81MG TABLET PO ONE (02:15)
[2019-07-22] MEDS ORDERED: NITROGLYCERIN OINT 1GM/INCH UDPKT TD ONE (02:15)
[2019-07-22 02:17] LABS: CHLORIDE 87 mEq/L (98-107)
[2019-07-22] MEDS ORDERED: ACETAMINOPHEN 325MG TABLET PO ONE (05:00)
[2019-07-22] MEDS ORDERED: INSULIN REGULAR (HUMULIN R) 300UNITS/3ML SUBCUT ONE (05:30)
[2019-07-22] MEDS ORDERED: ACETAMINOPHEN WITH CODEINE 300/30MG TABLET PO ONE (05:30)
[2019-07-22 09:11] VITALS: BP 115/77
[2019-07-22 09:23] LABS: *AMPHETAMINES SCREEN URINE NEGATIVE (NEGATIVE); *BARBITURATES SCREEN URINE NEGATIVE (NEGATIVE); *BENZODIAZEPINES SCREEN URINE NEGATIVE (NEGATIVE); *COCAINE SCREEN URINE NEGATIVE (NEGATIVE); METHADONE URINE SCREEN NEGATIVE (NEGATIVE)
[2019-07-22 09:24] LABS: CANNABINOID URINE SCREEN PRESUMTIVE POSITIVE (NEGATIVE); OPIATES URINE SCREEN PRESUMTIVE POSITIVE (NEGATIVE); PHENCYCLIDINE URINE SCREEN NEGATIVE (NEGATIVE)
== END 2019-07-22 09:20 | disposition short-term general hospital (02) ==
LOC: ER 01:12
DX: R07.89 Other chest pain (principal); E11.65 Type 2 diabetes mellitus with hyperglycemia; J44.9 Chronic obstructive pulmonary disease, unspecified; I11.0 Hypertensive heart disease with heart failure; I50.9 Heart failure, unspecified; Z86.73 Personal history of transient ischemic attack (TIA), and cerebral infarction without residual deficits; Z95.0 Presence of cardiac pacemaker; Z88.6 Allergy status to analgesic agent; Z88.3 Allergy status to other anti-infective agents; Z88.0 Allergy status to penicillin; Z91.018 Allergy to other foods; Z79.82 Long term (current) use of aspirin; Z79.4 Long term (current) use of insulin
CPT/HCPCS: 36415; 71045; 80053; 80305; 82962; 83880; 84484; 85025; 93005; 96372; 99285; J1815; Z7610

== ENCOUNTER 2019-10-28 08:26 | Emergency (ER) | payer OTHER ==
[~2019-10-28] VITALS: Ht 193 cm; Wt 132.0 kg
[2019-10-28 10:03] LABS: BASOPHILS % 0.5 % (0.0-2.0); EOSINOPHILS % 0.6 % (0.0-5.0); HEMATOCRIT. 44.1 % (42.0-52.0); HEMOGLOBIN. 15.1 g/dL (14.0-18.0); LYMPHOCYTES % 9.8 % (20.0-50.0); MEAN CORPUSCULAR HEMOGLOBIN 29.2 pg (28.0-32.0); MEAN CORPUSCULAR VOLUME 85.3 fL (80.0-94.0); MEAN PLATELET VOLUME 10.9 fl (7.4-10.4); MONOCYTES % 4.7 % (2.0-8.0); NEUTROPHILS % 84.4 % (40.0-76.0); PLATELET 196 x1000/uL (130-400); RED BLOOD CELL COUNT 5.16 mill/uL (4.7-6.1); RED CELL DISTRIBUTION WIDTH 13.6 % (11.6-14.6)
[2019-10-28 10:07] LABS: CHLORIDE 100 mEq/L (98-107)
[2019-10-28] MEDS ORDERED: MORPHINE SULFATE 4 MG/ML CPJ (NOT FOR IM USE) IV ONE (11:30)
[2019-10-28 15:08] VITALS: BP 121/69
== END 2019-10-28 15:09 | disposition home or self-care (01) ==
LOC: ER 08:26 → CANBEDREQ 16:51
DX: R07.89 Other chest pain (principal); I11.0 Hypertensive heart disease with heart failure; I50.9 Heart failure, unspecified; E11.9 Type 2 diabetes mellitus without complications; J44.9 Chronic obstructive pulmonary disease, unspecified; Z03.818 Encounter for observation for suspected exposure to other biological agents ruled out; Z86.73 Personal history of transient ischemic attack (TIA), and cerebral infarction without residual deficits; Z88.3 Allergy status to other anti-infective agents; Z88.6 Allergy status to analgesic agent; Z91.013 Allergy to seafood; Z95.0 Presence of cardiac pacemaker; Z79.82 Long term (current) use of aspirin; Z79.4 Long term (current) use of insulin; Z88.0 Allergy status to penicillin
CPT/HCPCS: 36415; 71045; 80053; 83880; 84484; 85025; 85379; 93005; 96374; 99285; C9803; J2270; U0003

== ENCOUNTER 2020-07-11 05:03 | Emergency (ER) | payer MEDICAID, OTHER ==
[~2020-07-11] VITALS: Ht 188 cm; Wt 123.0 kg
[2020-07-11] MEDS ORDERED: ACETAMINOPHEN WITH CODEINE 300/30MG TABLET PO STA (06:22)
[2020-07-11] MEDS ORDERED: ASPIRIN 81MG TABLET PO ONE (06:30)
[2020-07-11] MEDS ORDERED: NITROGLYCERIN 0.4MG TABLET SL SL PRN (06:30)
[2020-07-11 06:48] LABS: BASOPHILS % 0.8 % (0.0-2.0); EOSINOPHILS % 0.4 % (0.0-5.0); HEMATOCRIT. 33.8 % (42.0-52.0); HEMOGLOBIN. 11.7 g/dL (14.0-18.0); LYMPHOCYTES % 12.2 % (20.0-50.0); MEAN CORPUSCULAR HEMOGLOBIN 30.1 pg (28.0-32.0); MEAN CORPUSCULAR VOLUME 87.3 fL (80.0-94.0); MEAN PLATELET VOLUME 9.2 fl (7.4-10.4); NEUTROPHILS % 81.6 % (40.0-76.0); PLATELET 258 x1000/uL (130-400); RED BLOOD CELL COUNT 3.87 mill/uL (4.7-6.1); RED CELL DISTRIBUTION WIDTH 14.8 % (11.6-14.6)
[2020-07-11 06:52] LABS: CHLORIDE 92 mEq/L (98-107)
[2020-07-11 06:58] LABS: ETHANOL BLOOD < 10 mg/dL
[2020-07-11] MEDS ORDERED: NITROGLYCERIN OINT 1GM/INCH UDPKT TD ONE (07:30)
[2020-07-11] MEDS ORDERED: POTASSIUM CHLORIDE 20MEQ TABLET SR PO ONE (08:45)
[2020-07-11] MEDS ORDERED: ENOXAPARIN 120MG/0.8ML SYR SUBCUT ONE (08:45)
[2020-07-11] MEDS ORDERED: HYDROCODONE/ACETAMINOPHEN 5/325MG TABLET PO ONE (09:30)
[2020-07-11 11:44] VITALS: BP 104/66
[2020-07-11] MEDS ORDERED: INSULIN REGULAR (HUMULIN R) 300UNITS/3ML VIAL SUBCUT ONE (11:45)
== END 2020-07-11 11:50 | disposition short-term general hospital (02) ==
LOC: ER 05:03 → CANBEDREQ 12:28
DX: I21.4 Non-ST elevation (NSTEMI) myocardial infarction (principal); E87.6 Hypokalemia; I11.0 Hypertensive heart disease with heart failure; I50.9 Heart failure, unspecified; J44.9 Chronic obstructive pulmonary disease, unspecified; E11.9 Type 2 diabetes mellitus without complications; Z86.73 Personal history of transient ischemic attack (TIA), and cerebral infarction without residual deficits; Z95.810 Presence of automatic (implantable) cardiac defibrillator; Z88.6 Allergy status to analgesic agent; Z79.4 Long term (current) use of insulin; Z79.82 Long term (current) use of aspirin; Z88.1 Allergy status to other antibiotic agents; Z88.3 Allergy status to other anti-infective agents; Z91.013 Allergy to seafood
CPT/HCPCS: 36415; 71045; 80053; 80320; 82962; 83880; 84484; 85025; 93005; 96372; 99285; J1650; J1815; Z7610; G0480

== ENCOUNTER 2020-09-17 17:20 | Emergency (ER) | payer OTHER ==
[~2020-09-17] VITALS: Ht 182.9 cm; Wt 125.0 kg
[2020-09-17] MEDS ORDERED: HYDROCODONE/ACETAMINOPHEN 5/325MG TABLET PO ONE (18:00)
[2020-09-17] MEDS ORDERED: T3 PO (19:03)
[2020-09-17 19:40] VITALS: BP 110/72
== END 2020-09-17 19:41 | disposition home or self-care (01) ==
LOC: ER 17:20
DX: M25.561 Pain in right knee (principal); J45.909 Unspecified asthma, uncomplicated; I11.0 Hypertensive heart disease with heart failure; I50.9 Heart failure, unspecified; J44.9 Chronic obstructive pulmonary disease, unspecified; E11.9 Type 2 diabetes mellitus without complications; Z88.1 Allergy status to other antibiotic agents; Z88.6 Allergy status to analgesic agent; Z95.0 Presence of cardiac pacemaker; Z79.82 Long term (current) use of aspirin; Z86.73 Personal history of transient ischemic attack (TIA), and cerebral infarction without residual deficits
CPT/HCPCS: 73562; 99283